=== PATIENT | female | born 1980 | race Caucasian/White ===

== ENCOUNTER 2021-12-02 03:08 | Emergency (ER) | payer BC ==
[~2021-12-02] VITALS: Ht 175.3 cm; Wt 71.3 kg
[2021-12-02 03:11] VITALS: BP 161/91
[2021-12-02] MEDS ORDERED: triamcinolone acetonide 40mg/ml inj IM ONE (03:30)
[2021-12-02] MEDS ORDERED: PRED20TA PO (03:38)
== END 2021-12-02 05:14 | disposition left against medical advice (07) ==
LOC: ER 03:09
DX: L23.7 Allergic contact dermatitis due to plants, except food (principal)
CPT/HCPCS: 96372; 99283; J3301